=== PATIENT | male | born 1995 | race Caucasian/White ===

== ENCOUNTER 2023-01-09 17:18 | Emergency (ER) | payer SELFPAY ==
--- NOTE | 2023-01-09 17:29 | ED.EAR ---
HPI - Ear Problem General Chief complaint: Ear Stated complaint: Pain in left ear Time Seen by Provider: 01/09/23 17:29 Source: patient and RN notes reviewed History of Present Illness HPI Narrative: Patient is a 27-year-old male who presents to urgent care with complaints of left ear pain. Patient states that it started on Wednesday and he has been taking aspirin for the pain. Denies any fevers or other upper respiratory issues. No other acute complaints. No acute distress noted. Patient aware the plan of care. Some parts of this dictation were generated by voice recognition software and may contain typographical and/or grammatical inaccuracies. Related Data Home Medications Medication Instructions Recorded Confirmed metoprolol succinate 25 mg 25 mg PO DAILY 11/25/22 11/25/22 tablet,extended release 24 hr Allergies Allergy/AdvReac Type Severity Reaction Status Date / Time No Known Allergies Allergy Verified 11/25/22 09:10 Review of Systems Review of Systems: CONSTITUTIONAL: Denies fever, chills, or sweats. EYES: Denies visual changes, redness, or discharge. ENT: Denies rhinorrhea, congestion, sore throat. Reports of left otalgia CARDIOVASCULAR: Denies chest pain, palpitations, or edema. RESPIRATORY: Denies cough or dyspnea. GASTROINTESTINAL: Denies abdominal pain, nausea, vomiting, or diarrhea. GENITOURINARY: Denies dysuria or hematuria. SKIN: Denies rash or itching. MUSCULOSKELETAL: Denies back pain, joint pain, or myalgia. NEUROLOGIC: Denies headache, numbness, or weakness. All other systems reviewed are negative, except as documented in HPI. [facility] Past Medical History Medical History Achilles rupture, left Adult BMI 26.0-26.9 kg/sq m Atrial fibrillation with rapid ventricular response Surgical History Surgical History H/O Achilles tendon repair Family History Family History Other Diabetes mellitus Family history of coronary artery disease Social History Social History Smoking status: Never smoker Alcohol intake: never Comments At the time of my signature, I reviewed and agree with the nursing past medical, surgical, social, and family history. There is no relevant family history pertinent to the patient complaint. Exam Narrative: GENERAL: This is a well-nourished, well-developed patient, in no apparent distress. HEAD: normocephalic, atraumatic. EYES: PERRL. Sclera clear/white. Vision is grossly intact. EARS: External ears normal, auditory canals clear and without drainage, very mild erythema noted to the left hand with slight effusion. Right TM normal without perforation. Hearing grossly intact. NOSE: External nose normal with no obvious nasal discharge, nares without redness, no rhinorrhea. THROAT: Mucous membranes moist NECK: Neck supple, SKIN: warm, intact with no suspicious lesions or rash, good texture and turgor. NEURO: awake, alert, and oriented to person, place and time. There were no obvious focal neurologic abnormalities. EXTREMITIES: No clubbing, cyanosis, or edema. Course Course Level of Care: Express Care Visit Vital Signs Vital signs: Vital Signs Temperature 97.6 F 01/09/23 17:37 Pulse Rate 73 01/09/23 17:37 Respiratory Rate 16 01/09/23 17:37 Blood Pressure 125/92 H 01/09/23 17:37 Pulse Oximetry 100 01/09/23 17:37 Oxygen Delivery Room Air 01/09/23 17:37 Temperature 97.6 F 01/09/23 17:37 Pulse Rate 73 01/09/23 17:37 Respiratory Rate 16 01/09/23 17:37 Blood Pressure 125/92 H 01/09/23 17:37 Pulse Oximetry 100 01/09/23 17:37 Oxygen Delivery Room Air 01/09/23 17:37 Reviewed- Patient is informed that they may have pre-hypertension or hypertension based on a blood pressure reading in the department.
[2023-01-09 17:37] VITALS: BP 125/92; PULSE 73; RESP 16; TEMP 36.4; O2SAT 100
== END 2023-01-09 17:53 | disposition home or self-care (01) ==
PROVIDERS: Emergency Provider Nurse Practitioner Family; PCP Family Medicine
DX: H66.92 Otitis media, unspecified, left ear (principal); I48.91 Unspecified atrial fibrillation
CPT/HCPCS: 99213; G0463